=== PATIENT | female | born 1955 | race American Indian/Alaskan Native ===

== ENCOUNTER 2019-02-06 10:05 | Outpatient (CLI) | payer MEDICARE | END 2019-02-06 10:06 | disposition home or self-care (01) | LOC: C.RADH 10:05 | DX: Z01.818 Encounter for other preprocedural examination (principal) ==

== ENCOUNTER 2019-02-23 08:10 | Day surgery (SDC) | payer MEDICARE ==
[2019-02-14 11:12] VITALS: BMI 32.8
[2019-02-23] MEDS ORDERED: Midazolam 2 MG/2 ML VIAL ONE (10:21)
[2019-02-23] MEDS ORDERED: Propofol 10 mg/ml Inj (20 ML) ONE (10:21)
[2019-02-23] MEDS ORDERED: HYDROmorphone 0.5 mg/0.5 ml ISec IVP PRN (11:12)
[2019-02-23] MEDS ORDERED: Lactated Ringer's 1,000 ML IV SCH (11:15)
[2019-02-23 13:39] VITALS: BP 120/72; PULSE 63; RESP 18; TEMP 97.8; O2SAT 96
--- NOTE | 2019-02-24 00:38 | OP ---
PROCEDURE DATE: 02/23/2019 PREOPERATIVE DIAGNOSES: Enlarged uterus, fibroids. POSTOPERATIVE DIAGNOSES: Enlarged uterus, fibroids. PROCEDURE PERFORMED: Hysteroscopic myomectomy, dilatation and curettage. SURGEON: Jeanette Bain MD OPERATIVE FINDINGS: Enlarged 8 to 10-week sized anteverted uterus. Cervical stenosis noted. Bilateral ostia visualized. Submucosal mass noted close to approximately left tubal ostia, carefully removed. ESTIMATED BLOOD LOSS: 5 mL. BLOOD PRODUCTS: None. COMPLICATIONS: None. SPECIMEN SENT TO PATHOLOGY: Endocervical curetting, endometrial curetting, submucosal myoma. DESCRIPTION OF PROCEDURE: The patient was taken to the operating room where she was given general anesthesia. Once it was found to be adequate, she was positioned on the operating table in a dorsal supine position with the legs supported using stirrups. The patient was then prepped and draped in the usual sterile fashion. A time-out was performed confirming correct patient and correct procedure. Bimanual exam was performed with the above-mentioned findings. A Ponce retractor was placed on the anterior and posterior fornix of the vagina. A single-tooth tenaculum was placed in the anterior lip of the cervix. Endocervical curettings were obtained with a Kevorkian curette and sent to Pathology on [facility]. Hysteroscope was then advanced with the above-mentioned findings. MyoSure device was then carefully inserted. The mass was carefully resected. The MyoSure device was removed. A gentle curettage was done. The hysteroscope was then re-introduced. There was good hemostasis noted. All instruments were removed. There was good hemostasis noted at the tenaculum puncture site. At the end of the procedure, all needle, sponge and instrument counts were noted to be correct x2. The patient tolerated the procedure well and was transferred to the recovery room in stable condition. Jeanette Bain MD
== END 2019-02-23 13:44 | disposition home or self-care (01) ==
LOC: C.SDS 08:10
PROVIDERS: ATTEND Obstetrics & Gynecology
DX: D21.9 Benign neoplasm of connective and other soft tissue, unspecified (principal); N85.2 Hypertrophy of uterus; D25.9 Leiomyoma of uterus, unspecified
CPT/HCPCS: 58561; 88305; J1170; J2001; J2250; J2405; J2704; J3010

== ENCOUNTER 2019-04-02 10:45 | Outpatient (CLI) | payer MEDICARE | END 2019-04-02 10:46 | disposition home or self-care (01) | LOC: C.PAT 10:45 | DX: N85.2 Hypertrophy of uterus (principal) ==

== ENCOUNTER 2019-04-05 08:27 | Inpatient (IN) | payer MEDICARE ==
[2019-04-05 09:23] VITALS: BMI 35.1
[2019-04-05] MEDS ORDERED: Midazolam 2 MG/2 ML VIAL ONE (10:46)
[2019-04-05] MEDS ORDERED: Propofol 10 mg/ml Inj (20 ML) ONE (10:47)
[2019-04-05] MEDS ORDERED: Rocuronium 10 mg/ml (5 ml) ONE ×2 (10:58→17:50)
[2019-04-05] MEDS ORDERED: ceFAZolin 1 gm in NS 2 GM/200 ML BAG IVPB ONE (11:46)
[2019-04-05] MEDS ORDERED: Bupivacaine 0.25% 20 ML INJ IJ ONE (11:46)
[2019-04-05] MEDS ORDERED: Lidocaine/Epinephrine 1% 1:100000 10 ML IJ ONE (11:47)
[2019-04-05] MEDS ORDERED: HYDROmorphone 0.5 mg/0.5 ml ISec IVP PRN (14:14)
[2019-04-05] MEDS ORDERED: Dexamethasone 4 mg/1 ml IVP PRN (14:18)
[2019-04-05] MEDS ORDERED: Neostigmine 1:1000 (1 mg/ml) Inj ONE (18:18)
[2019-04-05] MEDS ORDERED: Oxycodone/Acetaminophen 5/325 mg Tab PO PRN (18:36)
[2019-04-05] MEDS ORDERED: Lactated Ringer's 1,000 ML IV SCH ×2 (18:45)
[2019-04-05] MEDS: cefOXitin IV 2 gm in Dextrose 2 GM/50 ML BAG IVPB SCH (19:30)
[2019-04-05] MEDS: HYDROmorphone 0.5 mg/0.5 ml ISec IVP PRN ×2 (19:30→20:10)
[2019-04-05 20:10] LABS: BASO % 0.2 % (0.0-2.0); EOS % 0.2 % (0.0-4.0); HEMOGLOBIN 12.1 g/dL (11.0-16.0); LYMPH # 2.2 K/uL (1.0-4.3); LYMPH % 13.7 % (20.0-40.0); MEAN CELL VOLUME 96.1 fL (81.0-99.0); MEAN CORPUSCULAR HEMOGLOBIN 32.2 pg (27.0-31.0); MEAN CORPUSCULAR HGB CONC 33.5 g/dL (33.0-37.0); MEAN PLATELET VOLUME 6.8 fL (7.2-11.7); MONO # 0.9 K/uL (0.0-0.8); MONO % 5.9 % (0.0-10.0); NEUT # 12.8 K/uL (1.8-7.0); RBC 3.77 Mil/uL (3.80-5.20); RED CELL DISTRIBUTION WIDTH 13.7 % (11.5-14.5)
[2019-04-05 20:37] LABS: ALB/GLOB RATIO 1.3 (1.0-2.1); ALBUMIN 3.4 g/dL (3.5-5.0); ALT/SGPT 42 U/L (9-52); AST/SGOT 35 U/L (14-36); BLOOD UREA NITROGEN 12 mg/dL (7-17); CALCIUM 8.4 mg/dl (8.6-10.4); GFR NON-AFRICAN AMERICAN > 60
[2019-04-06] MEDS: cefOXitin IV 2 gm in Dextrose 2 GM/50 ML BAG IVPB SCH ×2 (04:16→10:43)
[2019-04-06 06:53] LABS: BASO % 0.3 % (0.0-2.0); EOS % 0.3 % (0.0-4.0); LYMPH # 2.7 K/uL (1.0-4.3); LYMPH % 22.2 % (20.0-40.0); MEAN CELL VOLUME 96.8 fL (81.0-99.0); MEAN CORPUSCULAR HEMOGLOBIN 33.4 pg (27.0-31.0); MEAN CORPUSCULAR HGB CONC 34.5 g/dL (33.0-37.0); MEAN PLATELET VOLUME 7.4 fL (7.2-11.7); MONO # 0.8 K/uL (0.0-0.8); MONO % 6.8 % (0.0-10.0); NEUT # 8.7 K/uL (1.8-7.0); NEUT % 70.4 % (50.0-75.0); RBC 3.28 Mil/uL (3.80-5.20); RED CELL DISTRIBUTION WIDTH 13.8 % (11.5-14.5); WHITE BLOOD COUNT 12.3 K/uL (4.8-10.8)
[2019-04-06 07:07] LABS: ALB/GLOB RATIO 1.2 (1.0-2.1); ALT/SGPT 39 U/L (9-52); AST/SGOT 29 U/L (14-36); BLOOD UREA NITROGEN 12 mg/dL (7-17); GFR NON-AFRICAN AMERICAN > 60
[2019-04-06] MEDS: Simethicone 80 mg Chewtab PO PRN ×2 (10:06→18:30)
--- NOTE | 2019-04-06 12:31 | CP.PCM.PN ---
Subjective - Date & Time of Evaluation Date of Evaluation: 04/06/19 Time of Evaluation: 09:00 - Subjective Subjective: pt seen and examined and rperots feeling ok. pt proerts some infcain pain radiating to back. pt +knapp pt not yet ambautin, toelrated clear qliqiton with ovmiting x 1. pt anastacio any fever, chills. Objective - Vital Signs/Intake and Output Vital Signs (last 24 hours): Temp Pulse Resp BP Pulse Ox 97.1 F L 60 14 114/79 100 04/05/19 20:45 04/05/19 20:45 04/05/19 20:45 04/05/19 20:45 04/05/19 20:45 Intake and Output: 04/06/19 04/06/19 06:59 18:59 Intake Total 1650 Output Total 650 Balance 1000 - Medications Medications: Current Medications Lactated Ringer's (Lactated Ringer's) 1,000 mls @ 125 mls/hr IV .Q8H TORY Lactated Ringer's (Lactated Ringer's) 1,000 mls @ 100 mls/hr IV .Q10H TORY Ketorolac Tromethamine (Toradol) 30 mg IVP Q6 PRN PRN Reason: pain moderate 6-8 Last Admin: 04/06/19 01:46 Dose: 30 mg Oxycodone/Acetaminophen (Percocet 5/325 Mg Tab) 1 tab PO Q4H PRN PRN Reason: Pain, moderate (4-7) Stop: 04/08/19 18:37 Oxycodone/Acetaminophen (Percocet 5/325 Mg Tab) 2 tab PO Q4H PRN PRN Reason: Pain, severe (8-10) Stop: 04/08/19 18:37 Simethicone (Mylicon Chew Tab) 80 mg PO RQ8 PRN PRN Reason: GI distress Last Admin: 04/06/19 10:06 Dose: 80 mg - Labs Labs: 04/06/19 06:45 04/06/19 06:45 - Constitutional Appears: Well, Non-toxic - Head Exam Head Exam: ATRAUMATIC, NORMAL INSPECTION - Eye Exam Eye Exam: EOMI, Normal appearance - ENT Exam ENT Exam: Mucous Membranes Moist - Neck Exam Neck Exam: Full ROM - Respiratory Exam Respiratory Exam: Clear to Ausculation Bilateral, NORMAL BREATHING PATTERN - Cardiovascular Exam Cardiovascular Exam: REGULAR RHYTHM, +S1, +S2 - GI/Abdominal Exam GI & Abdominal Exam: Soft, Tenderness, Normal Bowel Sounds Additional comments: apporpaytel ttp over ubmilca incsion , no guarding, no reboudn tendner, no rigidty, +BS no flank pain b/l negaitb c/va oncicosn c/d/i no vaigan llbeeidng - Extremities Exam Extremities Exam: Normal Inspection - Back Exam Additional comments: negative jaida sign - Neurological Exam Neurological Exam: Alert, Awake Assessment and Plan (1) History of robot-assisted laparoscopic hysterectomy Assessment & Plan: s/p TRH, BSO, JAVAD, b/l uretolysis POD #1 with nuase, vomitng -npo, ivf -am labs -pain ,amnet -abdomian binder -incentive psirometer -zofrna prn if sympotms impvoed will consdier restarting clears vs imagiang above dw patient Status: Acute (2) Postoperative nausea and vomiting Status: Acute
[2019-04-06] MEDS: Oxycodone/Acetaminophen 5/325 mg Tab PO PRN ×2 (13:33→20:32)
--- NOTE | 2019-04-06 14:05 | US ---
Date of service: 04/06/2019 PROCEDURE: Ultrasound of the Kidneys HISTORY: s/p trh r/o hydronephorosis COMPARISON: None available. TECHNIQUE: Sonogram of the kidneys. FINDINGS: RIGHT KIDNEY: Measures: 11.1 x 4.7 x 5.5 cm. No obstructing calculus, hydronephrosis, or renal cyst identified. LEFT KIDNEY: Measures: 10.7 x 5.2 x 4.9 cm. No obstructing calculus, hydronephrosis, or renal cyst identified. OTHER FINDINGS: None. IMPRESSION: Unremarkable renal sonogram.
[2019-04-07 00:21] VITALS: RESP 20
[2019-04-07] MEDS: Oxycodone/Acetaminophen 5/325 mg Tab PO PRN ×2 (04:23→09:32)
[2019-04-07] MEDS: Simethicone 80 mg Chewtab PO PRN (04:24)
[2019-04-07 08:13] LABS: BASO % 0.3 % (0.0-2.0); EOS # 0.1 K/uL (0.0-0.7); EOS % 0.9 % (0.0-4.0); HEMOGLOBIN 9.8 g/dL (11.0-16.0); LYMPH # 2.7 K/uL (1.0-4.3); LYMPH % 27.5 % (20.0-40.0); MEAN CELL VOLUME 95.8 fL (81.0-99.0); MEAN CORPUSCULAR HEMOGLOBIN 33.3 pg (27.0-31.0); MEAN CORPUSCULAR HGB CONC 34.7 g/dL (33.0-37.0); MEAN PLATELET VOLUME 7.4 fL (7.2-11.7); MONO # 0.9 K/uL (0.0-0.8); MONO % 9.5 % (0.0-10.0); NEUT % 61.8 % (50.0-75.0); NRBC % 0.1 % (0.0-2.0); RBC 2.96 Mil/uL (3.80-5.20); RED CELL DISTRIBUTION WIDTH 13.7 % (11.5-14.5); WHITE BLOOD COUNT 9.8 K/uL (4.8-10.8)
[2019-04-07 08:22] LABS: BLOOD UREA NITROGEN 11 mg/dL (7-17); CALCIUM 8.3 mg/dl (8.6-10.4); GFR NON-AFRICAN AMERICAN > 60
[2019-04-07] MEDS ORDERED: Potassium Chloride 20 mEq ER Tab PO ONE (10:00)
[2019-04-07 11:08] VITALS: BP 112/76; PULSE 96; TEMP 97.9; O2SAT 98
--- NOTE | 2019-04-11 20:18 | OP ---
PROCEDURE DATE: 04/05/2019 PREOPERATIVE DIAGNOSES: Endometrial hyperplasia, postmenopausal bleeding, fibroids, pelvic pain, pelvic pressure. POSTOPERATIVE DIAGNOSES: Endometrial hyperplasia, postmenopausal bleeding, fibroids, pelvic pain, pelvic pressure, retroperitoneal fibrosis, and extensive lysis of adhesions. PROCEDURE PERFORMED: Lysis of extensive adhesions, total robotic hysterectomy, bilateral salpingo-oophorectomy, bilateral ureterolysis, cystoscopy, bilateral ureteral catheter stent. SURGEON: Jeanette Bain MD SOLUTION DESIGN ENGINEER: MEET Rodas ANESTHESIA: General endotracheal. ESTIMATED BLOOD LOSS: 400 mL. SPECIMENS: Uterus, right and left fallopian tube, right and left ovary. COMPLICATIONS: None. OPERATIVE FINDINGS: Enlarged, more than 250 g uterus, multiple fibroids noted, 4 cm posterior along the posterior colpotomy and additional anterior 4 cm broad ligament myoma, multiple myomas noted. Enlarged fibroid uterus with extensive adhesions in addition to omental adhesions noted to the supraumbilical area. Hina Albarran was the surgical oncologist, present for the entire case and essential in gaining entry laparoscopically, docking the robot, lysing the adhesions, performing the complete procedure, and was present for the entire case. DESCRIPTION OF PROCEDURE: The patient was taken to the operating room where she was given general anesthesia. Once it was found to be adequate, she was placed on the operating table in dorsal supine position with legs supported using stirrups. The patient was then prepped and draped in the usual sterile fashion appropriately. Time-out was performed to confirm correct patient and correct procedure. Bimanual exam was performed with above-mentioned findings. The patient was given preoperative antibiotics. A cystoscope was then inserted in the urethra. There was normal right bilateral ureteral jet and left bilateral ureteral jet. The catheter then was inserted on the right side and 5 mL of IC-Green were noted. The catheter was not able to be inserted into the left ureteral jet only superficially in which 5 mL of IC-Green was superficially given. There were bilateral ureteral jets noted. There was no gross masses, no trigone, noted. The cystoscope was then removed and the Tsai catheter was then inserted. A Ponce retractor was placed in the anterior and posterior fornix of the vagina. The cervix was adequately visualized. A single-tooth tenaculum was placed on the anterior lip of the cervix. The uterus was then sounded to 10 cm long. The cervix was sequentially dilated to allow for introduction of the VCare device, which was insufflated with 10 mL of air. Both green and blue cup were appropriately applied to the cervix in which the single-tooth tenaculum was removed. The VCare device was noted to be properly in place and the legs of the patient were then repositioned. The surgeon changed the gloves. Attention was then turned to the abdomen in which 2 cm above the supraumbilical area was given local anesthetic 0.25% Marcaine. An 8-mm skin incision was made with the scalpel. The fascia was then tented up with the Laine clamp. The fascia was then incised with the scalpel and confirmation was placed into the peritoneal cavity. The blunt trocar was then inserted. The abdomen was then insufflated with normal opening pressure and the abdomen was insufflated to 15 mmHg. The laparoscope was then inserted. The patient was placed in Trendelenburg position and there were extensive adhesions noted to the anterior abdominal wall. An 8-mm skin incision was made at the right lower quadrant, the left lower quadrant. A 12-mm incision was made in the left upper quadrant and additional 5-mm incision was made in the right upper quadrant. The bowel was then retracted out of the way. Following this, the LigaSure device was inserted and the omental adhesions were carefully lysed along the anterior abdominal wall to help with visualization. This took approximately 1.5 hours. Once the omental adhesions were carefully lysed and removed, there was inspection of the bowel with good hemostasis noted. Following this, the operative da Jessica robotic device was then docked as per appropriate nanosystems engineer instructions and the endoscope was placed in arm 2 and was carefully targeted. Monopolar device was inserted into arm 3. A bipolar device was inserted into arm 1. The tenaculum was inserted into the accessory port, a suction women's ministry director was through 5 port to help with manipulation. The tenaculum was then used to grasp the fibroids. There were gross adhesions noted to the pelvic sidewall, and once the ureter was identified using the IC-Green and the ureter was carefully lysed, there was extensive retroperitoneal fibrosis noted, which was carefully dissected along the IP ligament. Once the ureter was dissected out, the IP was identified on either side and cauterized and cut using the monopolar device away from the ureter on either side. Following this, the utero-ovarian ligament was lysed and the adnexa then were contained in a fashion in the cul-de-sac. The round ligament was carefully lysed using the bipolar device and carried down to the anterior portion of the broad ligament where the bladder flap was created. The uterine artery was then carefully dissected. There were multiple collaterals noted, which took extensive amount of time due to the excessive amount of fibroids. The ureter was carefully traced along which took an additional 2 hours. Following this, after all uterine arteries were carefully dissected and cauterized, the colpotomy was performed in an anterior portion and carefully along the cold cup along the posterior portion. The specimen was removed through the vagina. Following this, after the specimen was carefully removed, the ureter was carefully noted with the IC-Green and there was good ureters noted. Following this, the V-Loc suture was then inserted 6 inches and the vaginal cuff was then reapproximated and closed in a continuous fashion. The abdomen was carefully irrigated and there was good hemostasis noted. The robot was then undocked and there was good hemostasis noted. The fascia was reapproximated and closed along the supraumbilical and off of the 12-mm port using a Ur-6 needle. The skin was reapproximated and closed with 4-0 Monocryl in a running subcuticular fashion. Abdomen was prepped and cleaned and irrigated. Steri-Strips were applied. Island dressings were placed. The Tsai catheter was then removed and the cystoscope was then inserted and there was bilateral ureteral jets noted. The Tsai catheter was removed. At the end of the procedure, all needles, sponge, and instrument counts were noted as correct x2. The patient tolerated the procedure well and was transferred to the recovery room in stable condition. Jeanette Bain MD
== END 2019-04-07 14:00 | disposition home or self-care (01) | DRG 743 ==
LOC: C.SDS 08:27 → C.4M 19:36
PROVIDERS: ADMIT Obstetrics & Gynecology; ATTEND Obstetrics & Gynecology
PROC: 0UB78ZZ Excision of Bilateral Fallopian Tubes, Via Natural or Artificial Opening Endoscopic (ICD-10-PCS; 2019-04-05)
PROC: 0UB28ZZ Excision of Bilateral Ovaries, Via Natural or Artificial Opening Endoscopic (ICD-10-PCS; 2019-04-05)
PROC: 0TJB8ZZ Inspection of Bladder, Via Natural or Artificial Opening Endoscopic (ICD-10-PCS; 2019-04-05)
PROC: 8E0W4CZ Robotic Assisted Procedure of Trunk Region, Percutaneous Endoscopic Approach (ICD-10-PCS; 2019-04-05)
PROC: 0UT98ZZ Resection of Uterus, Via Natural or Artificial Opening Endoscopic (ICD-10-PCS; principal; 2019-04-05 09:00)
PROC: 0TN78ZZ Release Left Ureter, Via Natural or Artificial Opening Endoscopic (ICD-10-PCS; 2019-04-05 09:00)
DX: N85.00 Endometrial hyperplasia, unspecified (principal); K66.0 Peritoneal adhesions (postprocedural) (postinfection); D25.9 Leiomyoma of uterus, unspecified; N95.0 Postmenopausal bleeding